=== PATIENT | female | born 1990 | race Caucasian/White ===

== ENCOUNTER → 2023-05-17 14:16 | Outpatient (CLI) | payer OTHER, SELFPAY ==
[2023-05-17 15:17] LABS: Add Manual Diff / Slide Review NO; Basophils Absolute Auto 0 /uL (0-100); Basophils Percent Auto 0.3 % (0-2); Eosinophils Absolute Auto 100 /uL (0-450); Eosinophils Percent Auto 1.1 % (2-4); Hematocrit 40.7 % (36-46); Hemoglobin 13.6 g/dL (12.0-16.0); Lymphocytes Absolute Auto 2900 /uL (1100-4500); Lymphocytes Percent Auto 31.9 % (25-40); Mean Corpuscular HGB Conc 33.5 % (30-36); Mean Corpuscular Hemoglobin 28.2 PG (26-34); Mean Corpuscular Volume 84.2 fL (80-100); Monocytes Absolute Auto 400 /uL (0-900); Monocytes Percent Auto 4.7 % (3-14); Neutrophils Absolute Auto 5700 /uL (1500-7000); Platelet Count 294 X10^3/uL (150-400); Red Blood Cell Count 4.83 X10^6/uL (4.0-5.2); Red Cell Distribution Width 14.3 % (11.6-14.8); White Blood Cell Count 9.2 X10^3/uL (4.5-11.0)
[2023-05-17 15:25] LABS: Alanine Aminotransferase 29 IU/L (<35); Albumin 4.4 g/dL (3.5-5.0); Alkaline Phosphatase 63 U/L (38-126); Aspartate Aminotransferase 26 IU/L (14-36); BUN Creatinine Ratio 9.3 (6-22); Bilirubin Total 0.7 mg/dL (0.2-1.3); Blood Urea Nitrogen 5 mg/dL (7-17); Calcium 9.3 mg/dL (8.4-10.2); Carbon Dioxide 28 mmol/L (22-32); Chloride 104 mmol/L (98-107); Estimated Glomerular Filt Rate > 60 mL/min (>60); Globulin 4.2 g/dL (1.7-4.1); Glucose 107 mg/dL (70-100); HEMOLYSIS < 15 (0-50); Potassium 3.8 mmol/L (3.4-5.1); Sodium 138 mmol/L (137-145); Total Protein 8.6 g/dL (6.3-8.2)
== END ==
PROVIDERS: PCP Registered Nurse; Referring Provider Surgery; Visit Provider Surgery
DX: K81.9 Cholecystitis, unspecified (principal)
CPT/HCPCS: 36415; 80053; 85025

== ENCOUNTER 2023-06-01 10:18 | Day surgery (SDC) | payer BC, SELFPAY ==
[2023-05-31 15:27] VITALS: BMI 41.6
[2023-06-01] VITALS (13 sets, daily range): BP systolic 106–129; BP diastolic 64–83; PULSE 68–89; RESP 14–24; TEMP 36.2–36.7; O2SAT 94–100; BMI 40.1
--- NOTE | 2023-06-01 | PATH_ITS ---
[facility] Accession Number: [id number] No. of containers..01 Tissue . 01 Material submitted: . gallbladder - GALLBLADDER . 01 Diagnosis: GALLBLADDER, CHOLECYSTECTOMY: Cholelithiasis. No evidence of neoplasm. MRV 06/07/2023 1019 Local . 01 Electronically signed: . Gamaleil Vigil MD, PhD, Pathologist NPI- [id number] . 01 Gross description: . The specimen is received in formalin labeled with no patient identifiers or designation (authorization form received), and consists of an intact gallbladder measuring 6.1 x 2.4 x 2.1 cm. The cystic duct margin is inked blue, and no pericystic lymph node is identified. The lumen contains a yellow to brown bosselated calculus measuring 2.3 cm in greatest dimension admixed with dark green mucoid bile. The mucosa is green to brown and roughened with pinpoint yellow areas of discoloration and no polyps or lesions identified. The rodrigues average 0.2 cm thick. Showroom Salesperson sections to include the cystic duct margin and full thickness sections are submitted in cassette A1. ([id number]) /MRV 06/03/2023 1356 Local . 01 Pathologist provided ICD-10: K80.20 . 01 CPT . 772060 Specimen Comment: A courtesy copy of this report has been sent to [phone] Performed at: 01 [facility] [address] [place] [address], [place], [place] [id number] MD Singh Durham MD Phone: [phone]
--- NOTE | 2023-06-01 10:36 | PM.PREOP ---
Pre-operative Note COVID-19 COVID-19 status: Not tested Interval Note History & Physical reviewed/Exam performed by Physician: Yes Changes to H&P: No ASA Class (for procedural sedation): III
[2023-06-01] MEDS: LACTATED RINGERS 1,000 ML 42 ML IV (10:47)
[2023-06-01] MEDS: ONDANSETRON 4 MG/2 ML INJ IV ×3 (10:50→15:07)
[2023-06-01] MEDS: SCOPOLAMINE 1 PATCH TOP (10:54)
[2023-06-01] MEDS: CEFAZOLIN 2 GM/100 ML PREMIX 100 ML IV (11:28)
[2023-06-01] MEDS: ACETAMINOPHEN IV 1,000 MG/100 ML VIAL 400 MG IV (11:38)
--- NOTE | 2023-06-01 11:39 | SUR.OPER ---
Supine on padded OR bed, head on pillow, arms secured on padded arm boards at <90 degrees abduction, legs uncrossed, safety belt at thigh, tape over blanket over lower legs. FOOTBOARD AT END OF BED FOR FEET.
[2023-06-01] MEDS: BUPIVACAINE 0.5% (PF) 30 ML, EPINEPHrine 0.15 MG INJ (11:58)
--- NOTE | 2023-06-01 12:59 | PM.OP.1 ---
Operative Date/Time/Diagnoses Date of procedure: 06/01/23 Time of procedure: 13:00 Pre-op diagnosis: Symptomatic cholelithiasis Post-op diagnosis: same Procedure & Clinicians Procedure: Laparoscopic cholecystectomy Same procedure as scheduled: Yes Surgeon: Angel Sheehan Anesthesia Type: General Operative Notes Procedure in detail: The patient was given preoperative antibiotics. The patient was brought to the operating room and placed on the table in the supine position. General endotracheal anesthesia was induced. The abdomen was prepped and draped. A time-out was performed. We made a 1 cm supraumbilical incision. We dissected down to the anterior sheath using cautery. The fascia was scored with cautery and grasped with a Joann clamp to elevate the abdominal wall. We pierced the peritoneum with a Peon clamp. A long 12 mm port was placed and the abdomen was insufflated to 15 mmHg. A 5 mm 30 degree laparoscopic was inserted. There was no evidence of any injury from the entry. Next, we placed 5 mm ports in the subxiphoid position and right upper quadrant at the midclavicular line and anterior axillary line. The patient was then positioned in reverse Trendelenburg and the table was tilted to the left. The liver was quite enlarged and was developing a gallbladder. The dome of the gallbladder was grasped and retracted cephalad as much as possible given the large liver. Adhesions of mesenteric adipose tissue were dissected off the gallbladder. We then dissected the cystic structures with a combination of hook cautery and blunt dissection. We placed clips on the cystic duct and artery and divided the cystic duct and artery sharply between the clips. The gallbladder was then dissected off the liver and placed in a specimen retrieval bag. We irrigated the right upper quadrant and all the aspirate returned clear. We then removed the 5 mm ports under direct vision we removed the Mame port. We then injected some local into the fascia and closed the fascia with 3 interrupted 0 Vicryl sutures. The skin incisions were closed with 4-0 Monocryl and Steri-Strips were applied. Band-Aids were applied over the Steri-Strips. EBL: 20 mL Specimen: Gallbladder and contents Post-operative Condition: stable Disposition: PACU
[2023-06-01] MEDS: hydrOXYzine 50 MG/ML INJ 25 MG IM (13:52)
[2023-06-01] MEDS: METOCLOPRAMIDE 10 MG/2 ML INJ IV (14:09)
--- NOTE | 2023-06-01 14:11 | SUR.PHASEII ---
Patient to phase 2 recovery with continued complaints of nausea. Second liter of LR initiated and Reglan 10 mg IV given. Advised patient to rest for now and call light in place. Will reassess.
--- NOTE | 2023-06-01 15:05 | SUR.PHASEII ---
Patient states she is feeling better but still nauseated. VSS. Repeat zofran given.
== END 2023-06-01 15:49 | disposition home or self-care (01) ==
PROVIDERS: PCP Registered Nurse; Referring Provider Surgery; Visit Provider Surgery
PROC: 0FT44ZZ Resection of Gallbladder, Percutaneous Endoscopic Approach (ICD-10-PCS; CPT 47562; principal; 2023-06-01 11:45)
DX: K80.20 Calculus of gallbladder without cholecystitis without obstruction (principal)
CPT/HCPCS: 47562; J0136; J0171; J0330; J0690; J1100; J1170; J1885; J2250; J2405; J2704; J2765; J3010; J3410; J3490

== ENCOUNTER → 2023-12-21 14:41 | Outpatient (ROUT) | payer BC, SELFPAY ==
[2023-12-21 14:54] LABS: INR 1.1 (0.9-1.3); Prothrombin Time 12.8 SECONDS (9.4-12.5)
[2023-12-21 14:57] LABS: PTT Partial Thromboplastin Tim 39 SECONDS (25.1-36.5)
== END ==
PROVIDERS: PCP Registered Nurse; Visit Provider Registered Nurse
DX: N93.9 Abnormal uterine and vaginal bleeding, unspecified (principal); R10.2 Pelvic and perineal pain
CPT/HCPCS: 85610; 85730

== ENCOUNTER → 2025-03-23 15:25 | Outpatient (CLI) | payer OTHER, SELFPAY | PROVIDERS: PCP Registered Nurse; Visit Provider Obstetrics & Gynecology | DX: N89.8 Other specified noninflammatory disorders of vagina (principal); N91.3 Primary oligomenorrhea | CPT/HCPCS: 81514 ==

== ENCOUNTER → 2025-03-23 15:26 | Outpatient (CLI) | payer OTHER, SELFPAY ==
[2025-03-23 17:11] LABS: Hemoglobin A1C% w Est Avg Glu 5.3 % (4.0-6.0)
[2025-03-23 17:38] LABS: Alanine Aminotransferase 27 IU/L (<35); Albumin 4.5 g/dL (3.5-5.0); Albumin Globulin Ratio 1.3 (1.0-2.8); Alkaline Phosphatase 72 U/L (38-126); Blood Urea Nitrogen 9 mg/dL (7-17); Calcium 9.1 mg/dL (8.4-10.2); Carbon Dioxide 23 mmol/L (22-32); Chloride 104 mmol/L (98-107); Estimated Glomerular Filt Rate > 60 mL/min (>60); Globulin 3.5 g/dL (1.7-4.1); Glucose 97 mg/dL (70-99); HEMOLYSIS < 15 (0-50); Potassium 3.9 mmol/L (3.4-5.1); Sodium 139 mmol/L (137-145); Total Protein 8.0 g/dL (6.3-8.2)
[2025-03-23 17:55] LABS: Follicle Stimulating Hormone 3.64 mIU/mL; HCG Quantitative /Beta subunit < 2.39 mIU/mL
[2025-03-23 18:10] LABS: TSH w/ Reflex to FT4 1.13 uIU/mL (0.47-4.68)
[2025-03-23 18:11] LABS: Estradiol, Total 94.5 pg/mL
== END ==
PROVIDERS: PCP Registered Nurse; Referring Provider Obstetrics & Gynecology; Visit Provider Obstetrics & Gynecology
DX: N91.3 Primary oligomenorrhea (principal)
CPT/HCPCS: 36415; 80053; 82397; 82670; 83001; 83036; 84146; 84443; 84702